=== PATIENT | female | born 1980 | race Hispanic/Latino ===

== ENCOUNTER → 2021-01-02 | Outpatient (CLI) | payer OTHER ==
[~2021-01-02] MED LIST: DIATRIZOATE MEGL/DIATRIZOA SOD 30 ML BTL PO ONE; IOPAMIDOL 370 MG/ML 200 ML INFUS..BTL INJ ONE; SODIUM CHLORIDE 0.9% 50ML 50 ML ONE
== END ==
LOC: MRI 12:34
PROVIDERS: ATTEND Internal Medicine
DX: G43.901 Migraine, unspecified, not intractable, with status migrainosus (principal); K59.00 Constipation, unspecified
CPT/HCPCS: 70551; 74018; 74177; Q9967

== ENCOUNTER → 2021-06-12 | Outpatient (CLI) | payer OTHER | LOC: RAD 16:02 | PROVIDERS: ATTEND Internal Medicine | DX: J20.9 Acute bronchitis, unspecified (principal); B94.8 Sequelae of other specified infectious and parasitic diseases | CPT/HCPCS: 71046 ==

== ENCOUNTER → 2021-07-13 | Outpatient (CLI) | payer OTHER | LOC: RAD 08:49 | PROVIDERS: ATTEND Internal Medicine | DX: J41.0 Simple chronic bronchitis (principal) | CPT/HCPCS: 71046 ==